=== PATIENT | female | born 1975 | race Caucasian/White ===

== ENCOUNTER 2016-09-09 06:32 | Emergency (ER) | payer OTHER ==
--- NOTE | 2016-09-09 06:54 | ED.ADGEN ---
Past History Past Medical History: Hypothyroid Past Surgical History: Cholecystectomy, Alcohol Use: None Drug Use: None Adult General Chief Complaint Chief Complaint right calf pain HPI HPI 41-year-old female status post right shoulder arthroplasty presenting to the emergency department today with right calf pain. She describes it as a sharp pain that is migrating more proximal posterior to her knee. It is nonradiating. It is moderate without alleviating or exacerbating factors present. She does have a family history of blood clotting disorders including her mother who has a history of several DVTs. Otherwise she denies chest pain shortness of breath hemoptysis. She denies fevers chills or redness or rash. Review of systems is negative for chest pain shortness of breath abdominal pain nausea vomiting fevers or chills. All other review of systems is negative unless otherwise noted in history of present illness. Review of Systems Review of Systems SEE ABOVE. Physical Exam Physical Exam Constitutional: Well developed, well nourished, no acute distress, non-toxic appearance. HENT: Normocephalic, atraumatic, bilateral external ears normal, oropharynx moist, no oral exudates, nose normal. Eyes: PERRLA, EOMI, conjunctiva normal, no discharge. Neck: Normal range of motion, no tenderness, supple, no stridor. [] Cardiovascular:Heart rate regular rhythm, no murmur [] Lungs & Thorax: Bilateral breath sounds clear to auscultation [] Abdomen: Bowel sounds normal, soft, no tenderness, no masses, no pulsatile masses. [] Skin: Warm, dry, no erythema, no rash. Back: No tenderness, no CVA tenderness. [] Extremities: The patient's right lower extremity is warm and well perfused with palpable pulse. She has 2 second cap refill with normal neurovascular status. Normal sensation of the foot. She has tenderness along the venous system without swelling or erythema. Otherwise her extremities are nontender with normal range of motion. Neurologic: Alert and oriented X 3, normal motor function, normal sensory function, no focal deficits noted. [] Psychologic: Affect normal, judgement normal, mood normal. [] Current Patient Data Vital Signs Vital Signs Date Time Temp Pulse Resp B/P Pulse Ox O2 Delivery O2 Flow Rate FiO2 09/09/16 06:50 98.0 82 20 97 Room Air EKG EKG [] Radiology/Procedures Radiology/Procedures [] Course & Med Decision Making Course & Med Decision Making Pertinent Labs and Imaging studies reviewed. (See chart for details) [] 41-year-old female presenting to the emergency department today with leg pain in her right calf. She does have 2 risk factors for blood clots including status post surgery and family history. Vascular ultrasound of the right lower extremity was obtained which was neg. She was then discharged home to follow up with her PCP over the next 2-3 days. [id number] discharge instructions and return precautions were given. Patient's questions were answered to their satisfaction. Patient is comfortable plan. Final Impression Final Impression Right-sided calf pain. [] Problems: Dragon Disclaimer Dragon Disclaimer This electronic medical record was generated, in whole or in part, using a voice recognition dictation system. YAW CORONEL MD Sep 09, 2016 06:54
--- NOTE | 2016-09-09 08:16 | RAD ---
Right lower extremity venous ultrasound, 09/09/2016 : History: Postop right calf pain Duplex evaluation including grayscale, color flow and spectral Doppler analysis was performed. The femoral and popliteal veins show no filling defects to suggest DVT. The visualized calf veins are unremarkable. IMPRESSION: There is no sonographic evidence of deep vein thrombosis in the right lower extremity
[2016-09-09 08:20] VITALS: BP 115/73
== END 2016-09-09 08:25 | disposition home or self-care (01) ==
LOC: ER 06:46
DX: M79.661 Pain in right lower leg (principal); Z96.611 Presence of right artificial shoulder joint; E03.9 Hypothyroidism, unspecified
CPT/HCPCS: 93971; 99284-25

== ENCOUNTER → 2021-09-18 | Outpatient (CLI) | payer OTHER ==
--- NOTE | 2021-09-18 16:41 | RAD ---
EXAM: ULTRASOUND SOFT TISSUE NECK CLINICAL HISTORY: Reason: ML NECK LUMP / Spl. Instructions: / History: COMPARISON: None available. TECHNIQUE: Ultrasound examination of the thyroid gland was performed FINDINGS: Sonographic evaluation of the thyroid gland was performed and evaluated using ACR TI-RADS criteria. The right thyroid lobe measures 3.6 x 1.3 x 1.2 cm. The left thyroid lobe measures 2.8 x 1.1 x 0.9 cm . The isthmus measures 0.5 cm. Thyroid parenchyma is heterogeneous. Nodule #1: Location: Inferior right thyroid lobe and isthmus Size: 2.5 x 2.1 x 0.6 cm Composition: Solid Echogenicity: Very hypoechoic Margins: Smooth Shape: Wider than tall Echogenic foci: None TI-RADS: 4 IMPRESSION: 2.5 cm TI RADS 4 thyroid nodule in the inferior right thyroid lobe/isthmus. Recommend ultrasound-guid ed fine-needle aspiration. ACR TI-RADS risk category: TR4 (4-6 points): FNA if 1.5 cm, follow-up if 1-1.4 cm in 1, 2, 3, and 5 y ears. Electronically signed by: Enedina Alvarado MD (09/18/2021 4:39 PM) [id number]
== END ==
LOC: US 15:00
PROVIDERS: ATTEND Family Medicine
DX: E04.1 Nontoxic single thyroid nodule (principal)
CPT/HCPCS: 76536